=== PATIENT | male | born 1960 | race Caucasian/White ===

== ENCOUNTER 2017-07-11 23:17 | Emergency (ER) | END 2017-07-12 02:21 | disposition home or self-care (01) ==

== ENCOUNTER 2017-09-27 14:16 | Emergency (ER) | END 2017-09-27 19:10 | disposition home or self-care (01) ==

== ENCOUNTER 2017-11-29 13:17 | Inpatient (IN) | END 2017-11-30 16:25 | disposition home or self-care (01) | DRG 378 ==

== ENCOUNTER 2018-10-24 22:19 | Inpatient (IN) | payer OTHER ==
[~2018-10-24] VITALS: Ht 177.8 cm; Wt 123.0 kg
[~2018-10-24 22:19] MED LIST: ALLO100T PO; CARAS PO; CHLO25CA9 PO; FOLI-49 PO; LACT20SO2 PO; LORA-444; OXYC5CAP17 PO; PANT40TA3 PO; PROP10TA6 PO; QUET100T32 PO; RIFA550T4 PO; THIA100T56 PO; ZOLP5TAB PO
[2018-10-24 22:29] VITALS: Ht 177.8 cm; Wt 123.0 kg
[2018-10-24] MEDS ORDERED: SOD CHLORIDE 0.9% 1,000 ML IV STA (22:34)
[2018-10-25] MEDS ORDERED: LACTULOSE 30ML CUP PO PRN (01:00)
[2018-10-25] MEDS ORDERED: ONDANSETRON 4 MG INJ IV PRN (01:00)
[2018-10-25] MEDS ORDERED: BISACODYL (EC) 5 MG TAB PO PRN (01:00)
[2018-10-25] MEDS ORDERED: ACETAMINOPHEN 325 MG TAB PO PRN (01:00)
[2018-10-25] MEDS ORDERED: NACL 0.9% 3 ML SYG IV SCH (01:00)
[2018-10-25] MEDS ORDERED: DOCUSATE SODIUM 100 MG CAP PO PRN (01:00)
[2018-10-25] MEDS ORDERED: BUMETANIDE 1 MG INJ IV ONE (01:30)
[2018-10-25] MEDS ORDERED: LORAZEPAM 2 MG INJ IV PRN (01:30)
[2018-10-25 01:58] VITALS: BP 188/82; PULSE 101; RESP 20
[2018-10-25] MEDS ORDERED: LORAZEPAM 2 MG INJ IV ONE (05:00)
[2018-10-25] MEDS ORDERED: AMLODIPINE 5 MG TAB PO ONE (05:00)
[2018-10-25 07:04] VITALS: BP 137/74; PULSE 100
[2018-10-25 07:44] VITALS: BP 142/65; PULSE 106; RESP 18
[2018-10-25] MEDS: MULTIVITAMINS THERAPEUTIC TAB PO SCH (08:14)
[2018-10-25] MEDS: FOLIC ACID 1 MG TAB PO SCH (08:14)
[2018-10-25] MEDS: THIAMINE 100 MG TAB PO SCH (08:14)
[2018-10-25] MEDS ORDERED: PANTOPRAZOLE (EC) 40 MG TAB PO SCH (09:00)
[2018-10-25] MEDS ORDERED: LACTULOSE 30ML CUP PO ONE (10:00)
[2018-10-25] MEDS: LORAZEPAM 2 MG INJ IV PRN ×2 (11:42→22:44)
[2018-10-25] MEDS: LACTULOSE 30ML CUP PO SCH ×3 (12:00→23:52)
[2018-10-25 15:01] VITALS: BP 141/75; PULSE 112; RESP 19
[2018-10-25] MEDS: SUCRALFATE (100 MG/ML) 10ML CUP GTB SCH ×3 (15:10→20:43)
[2018-10-25] MEDS: OCTREOTIDE 1 MG in DEXTROSE 5% 95 ML IV SCH (15:52)
[2018-10-25] MEDS: CEFTRIAXONE 1 GM/50 ML (PMX) 50 ML IVPB SCH (15:52)
[2018-10-25] MEDS: PANTOPRAZOLE 40 MG INJ IV SCH (18:07)
[2018-10-25 20:30] VITALS: BP 144/67; PULSE 101; RESP 20
[2018-10-25] MEDS: RIFAXIMIN 550 MG TAB PO SCH (20:43)
[2018-10-26] VITALS: BP 129/65; PULSE 98; RESP 18
[2018-10-26] MEDS: LORAZEPAM 2 MG INJ IV PRN ×3 (01:35→22:32)
[2018-10-26 04:00] VITALS: BP 130/71; PULSE 95; RESP 20
[2018-10-26] MEDS ORDERED: SOD CHLORIDE 0.9% 500 ML IV ONE (05:30)
[2018-10-26] MEDS: PANTOPRAZOLE 40 MG INJ IV SCH ×2 (05:47→18:06)
[2018-10-26] MEDS: LACTULOSE 30ML CUP PO SCH ×3 (05:47→21:25)
[2018-10-26 07:26] VITALS: BP 128/67; PULSE 92; RESP 18
[2018-10-26] MEDS: MULTIVITAMINS THERAPEUTIC TAB PO SCH (08:31)
[2018-10-26] MEDS: THIAMINE 100 MG TAB PO SCH (08:31)
[2018-10-26] MEDS: FOLIC ACID 1 MG TAB PO SCH (08:31)
[2018-10-26] MEDS: SUCRALFATE (100 MG/ML) 10ML CUP GTB SCH ×4 (08:31→21:25)
[2018-10-26] MEDS: RIFAXIMIN 550 MG TAB PO SCH ×2 (08:31→21:25)
[2018-10-26] MEDS ORDERED: MAGNESIUM SULFATE 2 GM/50 ML 50 ML IVPB ONE (11:00)
[2018-10-26] MEDS: OCTREOTIDE 1 MG in DEXTROSE 5% 95 ML IV SCH (11:34)
[2018-10-26 11:48] VITALS: BP 142/64; PULSE 98; RESP 19
[2018-10-26] MEDS: CEFTRIAXONE 1 GM/50 ML (PMX) 50 ML IVPB SCH (12:57)
[2018-10-26 15:14] VITALS: BP 139/70; PULSE 89; RESP 19
[2018-10-26 20:00] VITALS: BP 151/64; PULSE 82; RESP 20
[2018-10-27] VITALS: BP 137/60; PULSE 84; RESP 22
[2018-10-27] MEDS: LORAZEPAM 2 MG INJ IV PRN ×5 (00:19→21:20)
[2018-10-27] MEDS: HYDROCODONE/APAP (5/325) TAB PO PRN (01:01)
[2018-10-27 04:00] VITALS: BP 128/69; RESP 20
[2018-10-27] MEDS: PANTOPRAZOLE 40 MG INJ IV SCH ×2 (06:14→17:12)
[2018-10-27 07:35] VITALS: BP 149/71; PULSE 82; RESP 20
[2018-10-27] MEDS: OCTREOTIDE 1 MG in DEXTROSE 5% 95 ML IV SCH (08:31)
[2018-10-27] MEDS: FOLIC ACID 1 MG TAB PO SCH (09:00)
[2018-10-27] MEDS: MULTIVITAMINS THERAPEUTIC TAB PO SCH (09:00)
[2018-10-27] MEDS: LACTULOSE 30ML CUP PO SCH ×2 (09:00→21:20)
[2018-10-27] MEDS: SUCRALFATE (100 MG/ML) 10ML CUP GTB SCH ×4 (09:00→21:20)
[2018-10-27 11:29] VITALS: BP 123/55; PULSE 86; RESP 20
[2018-10-27 13:36] VITALS: BP 181/82; PULSE 80; RESP 10
[2018-10-27] MEDS ORDERED: PROPOFOL 40 ML ONE (14:24)
[2018-10-27] MEDS ORDERED: LABETALOL HCL 20MG INJ ONE (14:26)
[2018-10-27] MEDS ORDERED: hydrALAzine 20 MG INJ ONE (14:27)
[2018-10-27] MEDS: THIAMINE 100 MG TAB PO SCH (15:42)
[2018-10-27] MEDS: RIFAXIMIN 550 MG TAB PO SCH ×2 (15:56→21:20)
[2018-10-27] MEDS: CEFTRIAXONE 1 GM/50 ML (PMX) 50 ML IVPB SCH (16:01)
[2018-10-27 20:00] VITALS: BP 142/74; PULSE 82; RESP 18
[2018-10-28] VITALS: BP 136/80; PULSE 80; RESP 20
[2018-10-28] MEDS: PANTOPRAZOLE 40 MG INJ IV SCH ×3 (05:41→17:49)
[2018-10-28 07:26] VITALS: BP 113/57; PULSE 87; RESP 17
[2018-10-28] MEDS: LACTULOSE 30ML CUP PO SCH ×2 (09:30→21:12)
[2018-10-28] MEDS: THIAMINE 100 MG TAB PO SCH (09:30)
[2018-10-28] MEDS: FOLIC ACID 1 MG TAB PO SCH (09:30)
[2018-10-28] MEDS: SUCRALFATE (100 MG/ML) 10ML CUP GTB SCH ×4 (09:30→21:12)
[2018-10-28] MEDS: RIFAXIMIN 550 MG TAB PO SCH ×2 (09:30→21:12)
[2018-10-28] MEDS: MULTIVITAMINS THERAPEUTIC TAB PO SCH (09:30)
[2018-10-28] MEDS ORDERED: POTASSIUM CHLORIDE (SR) 20 MEQ TAB PO STA (09:44)
[2018-10-28] MEDS ORDERED: MAGNESIUM SULFATE 2 GM/50 ML 50 ML IVPB ONE (10:00)
[2018-10-28 11:14] VITALS: BP 107/81; PULSE 89; RESP 17
[2018-10-28] MEDS: LORAZEPAM 2 MG INJ IV PRN ×2 (11:47→17:50)
[2018-10-28] MEDS: CEFTRIAXONE 1 GM/50 ML (PMX) 50 ML IVPB SCH (13:15)
[2018-10-28 15:19] VITALS: BP 134/64; PULSE 86; RESP 18
[2018-10-28 20:00] VITALS: BP 126/64; PULSE 81; RESP 18
[2018-10-28] MEDS: PROPRANOLOL 10 MG TAB PO SCH (21:13)
[2018-10-29] VITALS (7 sets, daily range): BP systolic 115–180; BP diastolic 63–114; PULSE 75–84; RESP 17–25
[2018-10-29] MEDS: LORAZEPAM 2 MG INJ IV PRN ×4 (00:20→20:34)
[2018-10-29] MEDS: PANTOPRAZOLE 40 MG INJ IV SCH ×2 (05:54→17:56)
[2018-10-29] MEDS: RIFAXIMIN 550 MG TAB PO SCH ×2 (08:17→20:07)
[2018-10-29] MEDS: MULTIVITAMINS THERAPEUTIC TAB PO SCH (08:17)
[2018-10-29] MEDS: SUCRALFATE (100 MG/ML) 10ML CUP GTB SCH ×5 (08:17→20:35)
[2018-10-29] MEDS: FOLIC ACID 1 MG TAB PO SCH (08:17)
[2018-10-29] MEDS: LACTULOSE 30ML CUP PO SCH ×3 (08:18→20:36)
[2018-10-29] MEDS: THIAMINE 100 MG TAB PO SCH (08:18)
[2018-10-29] MEDS: PROPRANOLOL 10 MG TAB PO SCH ×3 (08:18→20:36)
[2018-10-29] MEDS: CEFTRIAXONE 1 GM/50 ML (PMX) 50 ML IVPB SCH (13:11)
[2018-10-29] MEDS ORDERED: HALOPERIDOL 5 MG INJ IM ONE (22:00)
[2018-10-29] MEDS ORDERED: LORAZEPAM 2 MG INJ IV ONE ×2 (22:00→23:00)
[2018-10-29] MEDS ORDERED: DIPHENHYDRAMINE 50 MG INJ IV ONE (22:00)
[2018-10-29] MEDS ORDERED: HYDROmorphONE 1 MG/ML SYG IV ONE (23:00)
[2018-10-30] VITALS (7 sets, daily range): BP systolic 113–152; BP diastolic 58–91; PULSE 70–89; RESP 18–21
[2018-10-30] MEDS: LORAZEPAM 2 MG INJ IV PRN ×3 (04:58→20:32)
[2018-10-30] MEDS: PANTOPRAZOLE (EC) 40 MG TAB PO SCH ×2 (05:01→17:31)
[2018-10-30] MEDS: SUCRALFATE (100 MG/ML) 10ML CUP GTB SCH ×4 (08:59→20:24)
[2018-10-30] MEDS: MULTIVITAMINS THERAPEUTIC TAB PO SCH (08:59)
[2018-10-30] MEDS: RIFAXIMIN 550 MG TAB PO SCH ×2 (08:59→20:24)
[2018-10-30] MEDS: FOLIC ACID 1 MG TAB PO SCH (08:59)
[2018-10-30] MEDS: LACTULOSE 30ML CUP PO SCH ×2 (09:00→20:24)
[2018-10-30] MEDS: PROPRANOLOL 10 MG TAB PO SCH ×2 (09:00→20:25)
[2018-10-30] MEDS: THIAMINE 100 MG TAB PO SCH (09:03)
[2018-10-30] MEDS ORDERED: DIPHENHYDRAMINE 50 MG INJ IV ONE (22:28)
[2018-10-30] MEDS ORDERED: LORAZEPAM 2 MG INJ IV ONE (22:29)
[2018-10-31] VITALS: BP 121/57; PULSE 82; RESP 20
[2018-10-31] MEDS: LORAZEPAM 2 MG INJ IV PRN ×4 (00:21→22:44)
[2018-10-31] MEDS ORDERED: CHLORDIAZEPOXIDE 5 MG CAP PO ONE (02:30)
[2018-10-31 04:00] VITALS: BP 133/79; PULSE 79; RESP 20
[2018-10-31] MEDS: PANTOPRAZOLE (EC) 40 MG TAB PO SCH ×2 (05:56→17:51)
[2018-10-31 07:33] VITALS: BP 110/69; PULSE 79; RESP 18
[2018-10-31] MEDS: SUCRALFATE (100 MG/ML) 10ML CUP GTB SCH ×4 (09:39→20:14)
[2018-10-31] MEDS: MULTIVITAMINS THERAPEUTIC TAB PO SCH (09:39)
[2018-10-31] MEDS: LACTULOSE 30ML CUP PO SCH ×3 (09:39→20:30)
[2018-10-31] MEDS: RIFAXIMIN 550 MG TAB PO SCH ×2 (09:39→20:15)
[2018-10-31] MEDS: THIAMINE 100 MG TAB PO SCH (09:39)
[2018-10-31] MEDS: FOLIC ACID 1 MG TAB PO SCH (09:41)
[2018-10-31] MEDS: PROPRANOLOL 10 MG TAB PO SCH ×2 (09:41→20:15)
[2018-10-31 11:06] VITALS: BP 126/68; PULSE 84; RESP 18
[2018-10-31] MEDS: POTASSIUM CHLORIDE 100 ML IVPB SCH ×2 (11:48→15:01)
[2018-10-31 16:53] VITALS: BP 101/59; PULSE 88; RESP 18
[2018-10-31] MEDS ORDERED: DIPHENHYDRAMINE 50 MG INJ IV ONE (20:00)
[2018-10-31] MEDS ORDERED: LORAZEPAM 2 MG INJ IV ONE (20:00)
[2018-10-31] MEDS ORDERED: HALOPERIDOL 5 MG INJ IM ONE (20:00)
[2018-10-31 20:12] VITALS: BP 141/83; PULSE 84; RESP 23
[2018-11-01] VITALS: BP 137/77; PULSE 81; RESP 21
[2018-11-01] MEDS: LORAZEPAM 2 MG INJ IV PRN ×5 (02:48→22:39)
[2018-11-01 03:55] VITALS: BP 101/59; PULSE 82; RESP 20
[2018-11-01] MEDS: PANTOPRAZOLE (EC) 40 MG TAB PO SCH ×2 (06:17→17:42)
[2018-11-01 07:56] VITALS: BP 131/76; PULSE 84; RESP 17
[2018-11-01] MEDS: RIFAXIMIN 550 MG TAB PO SCH ×2 (08:21→20:34)
[2018-11-01] MEDS: THIAMINE 100 MG TAB PO SCH (08:21)
[2018-11-01] MEDS: FOLIC ACID 1 MG TAB PO SCH (08:21)
[2018-11-01] MEDS: SUCRALFATE (100 MG/ML) 10ML CUP GTB SCH ×4 (08:22→20:35)
[2018-11-01] MEDS: PROPRANOLOL 10 MG TAB PO SCH ×2 (08:22→20:34)
[2018-11-01] MEDS: MULTIVITAMINS THERAPEUTIC TAB PO SCH (08:22)
[2018-11-01] MEDS: LACTULOSE 30ML CUP PO SCH ×2 (08:22→20:35)
[2018-11-01 11:31] VITALS: BP 127/67; PULSE 76; RESP 18
[2018-11-01 15:00] VITALS: BP 140/73; PULSE 89; RESP 18
[2018-11-01 19:29] VITALS: BP_SYST 123; BP_SYST 140; BP_DIAS 66; BP_DIAS 87; PULSE 89; RESP 18
[2018-11-02] MEDS: LORAZEPAM 2 MG INJ IV PRN ×2 (00:51→11:14)
[2018-11-02 01:44] VITALS: BP 141/79; PULSE 87; RESP 18
[2018-11-02] MEDS ORDERED: HALOPERIDOL 5 MG INJ IM ONE (03:37)
[2018-11-02] MEDS ORDERED: LORAZEPAM 2 MG INJ IV ONE (03:37)
[2018-11-02] MEDS ORDERED: DIPHENHYDRAMINE 50 MG INJ IV ONE (03:37)
[2018-11-02] MEDS: PANTOPRAZOLE (EC) 40 MG TAB PO SCH ×2 (05:15→17:06)
[2018-11-02] MEDS: RIFAXIMIN 550 MG TAB PO SCH ×2 (09:00→20:44)
[2018-11-02] MEDS: LACTULOSE 30ML CUP PO SCH ×2 (09:00→20:43)
[2018-11-02] MEDS: PROPRANOLOL 10 MG TAB PO SCH ×2 (09:00→20:43)
[2018-11-02] MEDS: THIAMINE 100 MG TAB PO SCH (09:00)
[2018-11-02] MEDS: MULTIVITAMINS THERAPEUTIC TAB PO SCH (09:00)
[2018-11-02] MEDS: FOLIC ACID 1 MG TAB PO SCH (09:00)
[2018-11-02] MEDS: SUCRALFATE (100 MG/ML) 10ML CUP GTB SCH ×4 (09:00→20:42)
[2018-11-02 11:04] VITALS: BP 138/92; PULSE 87; RESP 18
[2018-11-02] MEDS ORDERED: METOPROLOL 5 MG INJ IV ONE (13:30)
[2018-11-02 14:37] VITALS: BP 136/83; PULSE 84; RESP 18
[2018-11-02] MEDS ORDERED: POTASSIUM CHLORIDE 100 ML IVPB SCH (15:00)
[2018-11-02 16:32] VITALS: BP 139/75; PULSE 83; RESP 19
[2018-11-02] MEDS ORDERED: METOPROLOL 5 MG INJ IV PRN (18:00)
[2018-11-02] MEDS ORDERED: METOPROLOL 5 MG INJ IV SCH (18:00)
[2018-11-02 19:38] VITALS: BP 135/77; PULSE 81; RESP 19
[2018-11-03] VITALS: BP 138/69; PULSE 84; RESP 19
[2018-11-03 04:16] VITALS: BP 132/83; PULSE 86; RESP 19
[2018-11-03] MEDS: PANTOPRAZOLE (EC) 40 MG TAB PO SCH ×2 (05:38→18:03)
[2018-11-03] MEDS: RIFAXIMIN 550 MG TAB PO SCH ×2 (08:29→20:26)
[2018-11-03] MEDS: SUCRALFATE (100 MG/ML) 10ML CUP GTB SCH ×4 (08:29→20:26)
[2018-11-03] MEDS: THIAMINE 100 MG TAB PO SCH (08:29)
[2018-11-03] MEDS: LACTULOSE 30ML CUP PO SCH ×2 (08:29→20:26)
[2018-11-03] MEDS: MULTIVITAMINS THERAPEUTIC TAB PO SCH (08:29)
[2018-11-03] MEDS: PROPRANOLOL 10 MG TAB PO SCH ×2 (08:29→20:26)
[2018-11-03] MEDS: FOLIC ACID 1 MG TAB PO SCH (08:29)
[2018-11-03 08:38] VITALS: BP 127/67; PULSE 84; RESP 20
[2018-11-03 11:36] VITALS: BP 117/68; PULSE 90; RESP 20
[2018-11-03 15:33] VITALS: BP 142/78; PULSE 90; RESP 20
[2018-11-03] MEDS: LORAZEPAM 2 MG INJ IV PRN (19:35)
[2018-11-03 20:24] VITALS: BP 132/74; PULSE 92; RESP 18
[2018-11-04] VITALS: BP 122/72; PULSE 80; RESP 19
[2018-11-04 04:00] VITALS: BP 118/69; PULSE 81; RESP 20
[2018-11-04] MEDS: PANTOPRAZOLE (EC) 40 MG TAB PO SCH ×2 (05:27→17:14)
[2018-11-04 07:07] VITALS: BP 133/74; PULSE 79; RESP 20
[2018-11-04] MEDS: LORAZEPAM 2 MG INJ IV PRN ×3 (08:23→15:58)
[2018-11-04] MEDS: FOLIC ACID 1 MG TAB PO SCH (09:00)
[2018-11-04] MEDS: PROPRANOLOL 10 MG TAB PO SCH ×2 (09:00→21:43)
[2018-11-04] MEDS: SUCRALFATE (100 MG/ML) 10ML CUP GTB SCH ×4 (09:00→21:42)
[2018-11-04] MEDS: MULTIVITAMINS THERAPEUTIC TAB PO SCH (09:00)
[2018-11-04] MEDS: RIFAXIMIN 550 MG TAB PO SCH ×3 (09:00→21:43)
[2018-11-04] MEDS: THIAMINE 100 MG TAB PO SCH (09:00)
[2018-11-04] MEDS: LACTULOSE 30ML CUP PO SCH ×2 (09:10→22:03)
[2018-11-04 10:59] VITALS: BP 132/66; PULSE 80; RESP 20
[2018-11-04] MEDS ORDERED: LORAZEPAM 2 MG INJ ONE (11:30)
[2018-11-04] MEDS ORDERED: MAGNESIUM SULFATE 2 GM/50 ML 50 ML IVPB ONE (13:00)
[2018-11-04] MEDS: CHLORDIAZEPOXIDE 5 MG CAP PO SCH ×2 (14:29→21:43)
[2018-11-04 14:57] VITALS: BP 132/82; PULSE 83; RESP 20
[2018-11-04] MEDS ORDERED: POTASSIUM PHOSPHATE 15 MM in SOD CHLORIDE 0.9% 250 ML IVPB ONE (15:00)
[2018-11-04 20:01] VITALS: BP 131/77; PULSE 81; RESP 23
[2018-11-05] MEDS: LORAZEPAM 2 MG INJ IV PRN (00:45)
[2018-11-05 02:00] VITALS: BP 137/71; PULSE 85; RESP 25
[2018-11-05] MEDS: PANTOPRAZOLE (EC) 40 MG TAB PO SCH ×2 (06:00→18:15)
[2018-11-05 06:50] VITALS: BP 124/60; PULSE 80; RESP 20
[2018-11-05 07:27] VITALS: BP 110/64; PULSE 84; RESP 22
[2018-11-05] MEDS: CHLORDIAZEPOXIDE 5 MG CAP PO SCH ×3 (09:24→22:02)
[2018-11-05] MEDS: THIAMINE 100 MG TAB PO SCH (09:25)
[2018-11-05] MEDS: RIFAXIMIN 550 MG TAB PO SCH ×2 (09:25→22:02)
[2018-11-05] MEDS: LACTULOSE 30ML CUP PO SCH ×3 (09:25→22:03)
[2018-11-05] MEDS: PROPRANOLOL 10 MG TAB PO SCH ×2 (09:25→22:03)
[2018-11-05] MEDS: FOLIC ACID 1 MG TAB PO SCH (09:25)
[2018-11-05] MEDS: MULTIVITAMINS THERAPEUTIC TAB PO SCH (09:25)
[2018-11-05] MEDS: SUCRALFATE (100 MG/ML) 10ML CUP GTB SCH ×5 (09:26→22:03)
[2018-11-05] MEDS: HYDROCODONE/APAP (5/325) TAB PO PRN (11:02)
[2018-11-05 11:44] VITALS: BP 112/66; PULSE 80; RESP 20
[2018-11-05] MEDS ORDERED: MAGNESIUM SULFATE 2 GM/50 ML 50 ML IVPB ONE (12:30)
[2018-11-05 14:33] VITALS: BP 104/68; PULSE 82; RESP 20
[2018-11-05 20:02] VITALS: BP 139/61; PULSE 86; RESP 18
[2018-11-06 02:04] VITALS: BP 115/68; PULSE 78; RESP 16
[2018-11-06] MEDS: LORAZEPAM 2 MG INJ IV PRN ×2 (04:39→23:22)
[2018-11-06] MEDS: PANTOPRAZOLE (EC) 40 MG TAB PO SCH ×2 (05:52→17:25)
[2018-11-06 08:03] VITALS: BP 121/77; PULSE 76; RESP 18
[2018-11-06] MEDS: LACTULOSE 30ML CUP PO SCH ×2 (08:17→20:31)
[2018-11-06] MEDS: CHLORDIAZEPOXIDE 5 MG CAP PO SCH ×3 (08:18→20:33)
[2018-11-06] MEDS: RIFAXIMIN 550 MG TAB PO SCH ×2 (08:18→20:33)
[2018-11-06] MEDS: MULTIVITAMINS THERAPEUTIC TAB PO SCH (08:18)
[2018-11-06] MEDS: FOLIC ACID 1 MG TAB PO SCH (08:18)
[2018-11-06] MEDS: SUCRALFATE (100 MG/ML) 10ML CUP GTB SCH ×4 (08:18→20:30)
[2018-11-06] MEDS: THIAMINE 100 MG TAB PO SCH (08:19)
[2018-11-06] MEDS: PROPRANOLOL 10 MG TAB PO SCH ×2 (08:19→20:32)
[2018-11-06 14:53] VITALS: BP 178/65; PULSE 78; RESP 20
[2018-11-06 20:00] VITALS: BP 126/74; PULSE 74; RESP 19
[2018-11-07 03:25] VITALS: BP 140/74; PULSE 75; RESP 16
[2018-11-07] MEDS: PANTOPRAZOLE (EC) 40 MG TAB PO SCH ×2 (05:08→17:13)
[2018-11-07] MEDS: MULTIVITAMINS THERAPEUTIC TAB PO SCH (08:52)
[2018-11-07] MEDS: RIFAXIMIN 550 MG TAB PO SCH ×2 (08:52→20:41)
[2018-11-07] MEDS: SUCRALFATE (100 MG/ML) 10ML CUP GTB SCH ×4 (08:52→20:40)
[2018-11-07] MEDS: THIAMINE 100 MG TAB PO SCH (08:52)
[2018-11-07] MEDS: CHLORDIAZEPOXIDE 5 MG CAP PO SCH ×3 (08:52→20:41)
[2018-11-07] MEDS: FOLIC ACID 1 MG TAB PO SCH (08:52)
[2018-11-07] MEDS: PROPRANOLOL 10 MG TAB PO SCH ×2 (08:52→20:41)
[2018-11-07] MEDS: LACTULOSE 30ML CUP PO SCH ×2 (08:53→20:40)
[2018-11-07 14:00] VITALS: BP 105/51; PULSE 80; RESP 16
[2018-11-07 20:25] VITALS: BP 127/73; PULSE 84; RESP 18
[2018-11-07] MEDS: HYDROCODONE/APAP (5/325) TAB PO PRN (20:42)
[2018-11-07] MEDS: LORAZEPAM 2 MG INJ IV PRN (23:25)
[2018-11-08] MEDS ORDERED: LORAZEPAM 2 MG INJ IV STA (01:08)
[2018-11-08] MEDS ORDERED: HALOPERIDOL 5 MG INJ ONE (01:14)
[2018-11-08] MEDS ORDERED: HALOPERIDOL 5 MG INJ IM STA (01:15)
[2018-11-08 02:20] VITALS: BP 112/69; PULSE 72; RESP 18
[2018-11-08] MEDS ORDERED: DIPHENHYDRAMINE 50 MG INJ IV ONE (03:09)
[2018-11-08] MEDS: PANTOPRAZOLE (EC) 40 MG TAB PO SCH ×2 (05:37→17:17)
[2018-11-08 08:00] VITALS: BP 119/57; PULSE 76; RESP 18
[2018-11-08] MEDS: CHLORDIAZEPOXIDE 5 MG CAP PO SCH ×4 (08:54→21:00)
[2018-11-08] MEDS: LACTULOSE 30ML CUP PO SCH ×3 (08:54→21:00)
[2018-11-08] MEDS: SUCRALFATE (100 MG/ML) 10ML CUP GTB SCH ×5 (08:54→21:00)
[2018-11-08] MEDS: THIAMINE 100 MG TAB PO SCH ×2 (08:55→09:00)
[2018-11-08] MEDS: PROPRANOLOL 10 MG TAB PO SCH ×3 (08:55→21:00)
[2018-11-08] MEDS: RIFAXIMIN 550 MG TAB PO SCH ×3 (08:55→21:00)
[2018-11-08] MEDS: MULTIVITAMINS THERAPEUTIC TAB PO SCH ×2 (08:55→09:00)
[2018-11-08] MEDS: FOLIC ACID 1 MG TAB PO SCH ×2 (08:55→09:00)
[2018-11-08 14:30] VITALS: BP 130/64; PULSE 82; RESP 18
[2018-11-08 20:00] VITALS: BP 132/60; PULSE 80; RESP 18
[2018-11-08] MEDS: LORAZEPAM 2 MG INJ IV PRN (21:28)
[2018-11-09 04:00] VITALS: BP 119/53; PULSE 96; RESP 19
[2018-11-09] MEDS: PANTOPRAZOLE (EC) 40 MG TAB PO SCH ×2 (06:00→18:00)
[2018-11-09 07:38] VITALS: BP 114/59; PULSE 92; RESP 16
[2018-11-09] MEDS: CHLORDIAZEPOXIDE 5 MG CAP PO SCH ×3 (09:00→20:45)
[2018-11-09] MEDS: SUCRALFATE (100 MG/ML) 10ML CUP GTB SCH ×4 (09:00→20:45)
[2018-11-09 14:00] VITALS: BP 142/86; PULSE 91; RESP 20
[2018-11-09] MEDS: THIAMINE 100 MG TAB PO SCH (14:45)
[2018-11-09] MEDS: LACTULOSE 30ML CUP PO SCH ×2 (14:45→20:50)
[2018-11-09] MEDS: RIFAXIMIN 550 MG TAB PO SCH ×2 (14:46→20:45)
[2018-11-09] MEDS: FOLIC ACID 1 MG TAB PO SCH (14:46)
[2018-11-09] MEDS: MULTIVITAMINS THERAPEUTIC TAB PO SCH (14:46)
[2018-11-09] MEDS: PROPRANOLOL 10 MG TAB PO SCH ×2 (14:46→20:45)
[2018-11-09 20:00] VITALS: BP 131/73; PULSE 80; RESP 19
[2018-11-09] MEDS: HYDROCODONE/APAP (5/325) TAB PO PRN (20:45)
[2018-11-10 02:00] VITALS: BP 110/67; PULSE 71; RESP 18
[2018-11-10] MEDS: PANTOPRAZOLE (EC) 40 MG TAB PO SCH ×2 (06:19→17:40)
[2018-11-10 08:10] VITALS: BP 129/74; PULSE 72; RESP 18
[2018-11-10] MEDS: SUCRALFATE (100 MG/ML) 10ML CUP GTB SCH ×4 (08:39→20:25)
[2018-11-10] MEDS: FOLIC ACID 1 MG TAB PO SCH (08:40)
[2018-11-10] MEDS: LACTULOSE 30ML CUP PO SCH ×2 (08:40→20:25)
[2018-11-10] MEDS: MULTIVITAMINS THERAPEUTIC TAB PO SCH (08:41)
[2018-11-10] MEDS: CHLORDIAZEPOXIDE 5 MG CAP PO SCH ×3 (08:41→20:24)
[2018-11-10] MEDS: RIFAXIMIN 550 MG TAB PO SCH ×2 (08:41→20:24)
[2018-11-10] MEDS: PROPRANOLOL 10 MG TAB PO SCH ×2 (08:41→20:25)
[2018-11-10] MEDS: THIAMINE 100 MG TAB PO SCH (08:41)
[2018-11-10 14:45] VITALS: BP 122/72; PULSE 64; RESP 18
[2018-11-10 19:53] VITALS: BP 149/70; PULSE 65; RESP 18
[2018-11-10] MEDS: LORAZEPAM 2 MG INJ IV PRN (23:35)
[2018-11-11 02:05] VITALS: BP 117/60; PULSE 70; RESP 20
[2018-11-11] MEDS: PANTOPRAZOLE (EC) 40 MG TAB PO SCH ×2 (06:00→17:53)
[2018-11-11 08:39] VITALS: BP 120/65; PULSE 76; RESP 20
[2018-11-11] MEDS: CHLORDIAZEPOXIDE 5 MG CAP PO SCH ×3 (09:05→20:24)
[2018-11-11] MEDS: RIFAXIMIN 550 MG TAB PO SCH ×2 (09:07→20:24)
[2018-11-11] MEDS: PROPRANOLOL 10 MG TAB PO SCH ×2 (09:07→20:25)
[2018-11-11] MEDS: SUCRALFATE (100 MG/ML) 10ML CUP GTB SCH ×4 (09:09→20:24)
[2018-11-11] MEDS: LACTULOSE 30ML CUP PO SCH ×2 (09:09→20:31)
[2018-11-11] MEDS: THIAMINE 100 MG TAB PO SCH (09:13)
[2018-11-11] MEDS: FOLIC ACID 1 MG TAB PO SCH (09:13)
[2018-11-11] MEDS: MULTIVITAMINS THERAPEUTIC TAB PO SCH (09:15)
[2018-11-11] MEDS: LORAZEPAM 2 MG INJ IV PRN ×2 (14:21→18:24)
[2018-11-11 15:02] VITALS: BP 107/57; PULSE 69; RESP 20
[2018-11-11] MEDS: QUETIAPINE 100 MG TAB PO PRN (20:25)
[2018-11-11 20:42] VITALS: BP 108/66; PULSE 71; RESP 20
[2018-11-12] MEDS: LORAZEPAM 2 MG INJ IV PRN
[2018-11-12 02:06] VITALS: BP 116/67; PULSE 73; RESP 19
[2018-11-12] MEDS: QUETIAPINE 100 MG TAB PO PRN ×2 (03:13→22:40)
[2018-11-12] MEDS: PANTOPRAZOLE (EC) 40 MG TAB PO SCH ×2 (05:38→17:53)
[2018-11-12] MEDS: RIFAXIMIN 550 MG TAB PO SCH ×2 (09:00→22:38)
[2018-11-12] MEDS: LACTULOSE 30ML CUP PO SCH ×2 (09:00→22:36)
[2018-11-12] MEDS: FOLIC ACID 1 MG TAB PO SCH (09:00)
[2018-11-12] MEDS: SUCRALFATE (100 MG/ML) 10ML CUP GTB SCH ×4 (09:00→22:36)
[2018-11-12] MEDS: PROPRANOLOL 10 MG TAB PO SCH ×2 (09:00→22:37)
[2018-11-12] MEDS: THIAMINE 100 MG TAB PO SCH (09:00)
[2018-11-12] MEDS: MULTIVITAMINS THERAPEUTIC TAB PO SCH (09:00)
[2018-11-12] MEDS: CHLORDIAZEPOXIDE 5 MG CAP PO SCH ×3 (09:00→22:38)
[2018-11-12 20:00] VITALS: BP 113/61; PULSE 83; RESP 18
[2018-11-13 02:00] VITALS: BP 114/62; PULSE 70; RESP 18
[2018-11-13] MEDS: PANTOPRAZOLE (EC) 40 MG TAB PO SCH ×2 (06:00→17:20)
[2018-11-13 08:45] VITALS: BP 110/65; PULSE 75; RESP 18
[2018-11-13] MEDS: THIAMINE 100 MG TAB PO SCH (09:00)
[2018-11-13] MEDS: CHLORDIAZEPOXIDE 5 MG CAP PO SCH ×3 (09:00→21:00)
[2018-11-13] MEDS: PROPRANOLOL 10 MG TAB PO SCH ×2 (09:00→21:00)
[2018-11-13] MEDS: SUCRALFATE (100 MG/ML) 10ML CUP PO SCH ×4 (09:00→21:00)
[2018-11-13] MEDS: RIFAXIMIN 550 MG TAB PO SCH ×2 (09:00→21:00)
[2018-11-13] MEDS: MULTIVITAMINS THERAPEUTIC TAB PO SCH (09:00)
[2018-11-13] MEDS: LACTULOSE 30ML CUP PO SCH ×2 (09:00→21:00)
[2018-11-13] MEDS: FOLIC ACID 1 MG TAB PO SCH (09:00)
[2018-11-13] MEDS: QUETIAPINE 100 MG TAB PO PRN (14:02)
[2018-11-13 14:20] VITALS: BP 113/70; PULSE 77; RESP 16
[2018-11-13 20:00] VITALS: BP 120/61; PULSE 86; RESP 17
[2018-11-14] MEDS: QUETIAPINE 100 MG TAB PO PRN (01:31)
[2018-11-14] MEDS: CHLORDIAZEPOXIDE 5 MG CAP PO SCH ×4 (01:54→20:41)
[2018-11-14 02:00] VITALS: BP 118/59; PULSE 78; RESP 18
[2018-11-14] MEDS: PANTOPRAZOLE (EC) 40 MG TAB PO SCH ×2 (06:00→17:01)
[2018-11-14 08:00] VITALS: BP 124/62; PULSE 76; RESP 18
[2018-11-14] MEDS: SUCRALFATE (100 MG/ML) 10ML CUP PO SCH ×4 (10:55→20:40)
[2018-11-14] MEDS: LACTULOSE 30ML CUP PO SCH ×2 (10:56→20:41)
[2018-11-14] MEDS: PROPRANOLOL 10 MG TAB PO SCH ×2 (10:56→20:42)
[2018-11-14] MEDS: FOLIC ACID 1 MG TAB PO SCH (10:56)
[2018-11-14] MEDS: THIAMINE 100 MG TAB PO SCH (10:57)
[2018-11-14] MEDS: RIFAXIMIN 550 MG TAB PO SCH ×2 (10:57→20:41)
[2018-11-14] MEDS: MULTIVITAMINS THERAPEUTIC TAB PO SCH (10:57)
[2018-11-14 14:00] VITALS: BP 132/72; PULSE 84; RESP 18
[2018-11-14 20:00] VITALS: BP 112/61; PULSE 94; RESP 17
[2018-11-15 02:00] VITALS: BP 106/59; PULSE 95; RESP 18
[2018-11-15] MEDS: QUETIAPINE 100 MG TAB PO PRN ×2 (03:27→21:10)
[2018-11-15] MEDS: HYDROCODONE/APAP (5/325) TAB PO PRN (03:27)
[2018-11-15] MEDS: PANTOPRAZOLE (EC) 40 MG TAB PO SCH ×2 (05:32→18:30)
[2018-11-15 08:00] VITALS: BP 155/86; PULSE 96; RESP 20
[2018-11-15] MEDS: LACTULOSE 30ML CUP PO SCH ×2 (09:00→21:00)
[2018-11-15] MEDS: RIFAXIMIN 550 MG TAB PO SCH ×2 (11:46→21:10)
[2018-11-15] MEDS: MULTIVITAMINS THERAPEUTIC TAB PO SCH (11:48)
[2018-11-15] MEDS: SUCRALFATE (100 MG/ML) 10ML CUP PO SCH ×4 (11:49→21:19)
[2018-11-15] MEDS: THIAMINE 100 MG TAB PO SCH (11:49)
[2018-11-15] MEDS: CHLORDIAZEPOXIDE 5 MG CAP PO SCH ×3 (11:49→21:11)
[2018-11-15] MEDS: FOLIC ACID 1 MG TAB PO SCH (11:49)
[2018-11-15] MEDS: PROPRANOLOL 10 MG TAB PO SCH ×2 (11:51→21:10)
[2018-11-15 14:00] VITALS: BP 128/76; PULSE 64; RESP 20
[2018-11-15 20:01] VITALS: BP 104/57; PULSE 76; RESP 17
[2018-11-15 20:30] VITALS: RESP 18
[2018-11-16 02:00] VITALS: BP 108/58; PULSE 72; RESP 18
[2018-11-16 02:30] VITALS: RESP 19
[2018-11-16] MEDS: QUETIAPINE 100 MG TAB PO PRN ×2 (04:05→21:47)
[2018-11-16] MEDS: PANTOPRAZOLE (EC) 40 MG TAB PO SCH ×2 (05:05→17:05)
[2018-11-16 08:13] VITALS: BP 117/63; PULSE 77; RESP 18
[2018-11-16] MEDS: LACTULOSE 30ML CUP PO SCH ×2 (09:00→21:00)
[2018-11-16] MEDS: SUCRALFATE (100 MG/ML) 10ML CUP PO SCH ×4 (09:00→21:00)
[2018-11-16] MEDS: THIAMINE 100 MG TAB PO SCH (09:29)
[2018-11-16] MEDS: CHLORDIAZEPOXIDE 5 MG CAP PO SCH ×3 (09:29→21:44)
[2018-11-16] MEDS: RIFAXIMIN 550 MG TAB PO SCH ×2 (09:29→21:44)
[2018-11-16] MEDS: MULTIVITAMINS THERAPEUTIC TAB PO SCH (09:29)
[2018-11-16] MEDS: PROPRANOLOL 10 MG TAB PO SCH ×2 (09:30→21:45)
[2018-11-16] MEDS: FOLIC ACID 1 MG TAB PO SCH (09:30)
[2018-11-16 20:40] VITALS: BP 118/58; PULSE 69; RESP 20
[2018-11-17 02:16] VITALS: BP 120/64; PULSE 78; RESP 18
[2018-11-17] MEDS: PANTOPRAZOLE (EC) 40 MG TAB PO SCH ×2 (06:08→17:20)
[2018-11-17 08:11] VITALS: BP 133/91; PULSE 77; RESP 19
[2018-11-17] MEDS: SUCRALFATE (100 MG/ML) 10ML CUP PO SCH ×4 (08:28→20:40)
[2018-11-17] MEDS: LACTULOSE 30ML CUP PO SCH ×2 (08:29→20:40)
[2018-11-17] MEDS: RIFAXIMIN 550 MG TAB PO SCH ×2 (08:29→20:39)
[2018-11-17] MEDS: FOLIC ACID 1 MG TAB PO SCH (08:29)
[2018-11-17] MEDS: THIAMINE 100 MG TAB PO SCH (08:29)
[2018-11-17] MEDS: CHLORDIAZEPOXIDE 5 MG CAP PO SCH ×2 (08:29→12:41)
[2018-11-17] MEDS: PROPRANOLOL 10 MG TAB PO SCH ×2 (08:30→20:40)
[2018-11-17] MEDS: MULTIVITAMINS THERAPEUTIC TAB PO SCH (08:30)
[2018-11-17 14:00] VITALS: BP 99/58; PULSE 76; RESP 17
[2018-11-17] MEDS: QUETIAPINE 100 MG TAB PO PRN ×2 (16:04→23:02)
[2018-11-17 18:06] VITALS: BP 107/59; PULSE 78; RESP 17
[2018-11-17 20:00] VITALS: BP 102/63; PULSE 75; RESP 18
[2018-11-18 02:56] VITALS: BP 137/66; PULSE 74; RESP 17
[2018-11-18] MEDS: PANTOPRAZOLE (EC) 40 MG TAB PO SCH ×3 (05:32→17:05)
[2018-11-18 07:24] VITALS: BP 97/54; PULSE 78; RESP 16
[2018-11-18] MEDS: MULTIVITAMINS THERAPEUTIC TAB PO SCH (08:45)
[2018-11-18] MEDS: RIFAXIMIN 550 MG TAB PO SCH ×2 (08:45→21:17)
[2018-11-18] MEDS: LACTULOSE 30ML CUP PO SCH ×2 (08:45→21:17)
[2018-11-18] MEDS: FOLIC ACID 1 MG TAB PO SCH (08:45)
[2018-11-18] MEDS: SUCRALFATE (100 MG/ML) 10ML CUP PO SCH ×4 (08:45→21:17)
[2018-11-18] MEDS: PROPRANOLOL 10 MG TAB PO SCH ×2 (08:45→21:17)
[2018-11-18] MEDS: THIAMINE 100 MG TAB PO SCH (08:46)
[2018-11-18 13:44] VITALS: BP 107/62; PULSE 76; RESP 18
[2018-11-18 20:00] VITALS: BP 129/77; PULSE 82; RESP 18
[2018-11-18] MEDS: LORAZEPAM 1 MG TAB PO PRN (21:55)
[2018-11-19 02:00] VITALS: BP 164/67; PULSE 82; RESP 18
[2018-11-19] MEDS: LORAZEPAM 1 MG TAB PO PRN ×2 (05:23→23:57)
[2018-11-19] MEDS: PANTOPRAZOLE (EC) 40 MG TAB PO SCH ×2 (05:29→17:12)
[2018-11-19 07:21] VITALS: BP 108/65; PULSE 78; RESP 18
[2018-11-19] MEDS: RIFAXIMIN 550 MG TAB PO SCH ×2 (09:53→21:26)
[2018-11-19] MEDS: THIAMINE 100 MG TAB PO SCH (09:53)
[2018-11-19] MEDS: LACTULOSE 30ML CUP PO SCH ×2 (09:53→17:12)
[2018-11-19] MEDS: SUCRALFATE (100 MG/ML) 10ML CUP PO SCH ×4 (09:53→21:26)
[2018-11-19] MEDS: FOLIC ACID 1 MG TAB PO SCH (09:54)
[2018-11-19] MEDS: MULTIVITAMINS THERAPEUTIC TAB PO SCH (09:54)
[2018-11-19] MEDS: PROPRANOLOL 10 MG TAB PO SCH ×2 (09:54→21:26)
[2018-11-19 14:03] VITALS: BP 131/77; PULSE 76; RESP 16
[2018-11-19 19:34] VITALS: BP 110/59; PULSE 71; RESP 18
[2018-11-19] MEDS: QUETIAPINE 100 MG TAB PO PRN (22:31)
[2018-11-20 01:41] VITALS: BP 90/43; PULSE 76; RESP 18
[2018-11-20] MEDS ORDERED: HALOPERIDOL 5 MG INJ IM ONE (02:30)
[2018-11-20] MEDS ORDERED: LORAZEPAM 2 MG INJ IM ONE (02:30)
[2018-11-20] MEDS: PANTOPRAZOLE (EC) 40 MG TAB PO SCH ×2 (06:00→17:27)
[2018-11-20 07:28] VITALS: BP 107/86; PULSE 75; RESP 16
[2018-11-20] MEDS: SUCRALFATE (100 MG/ML) 10ML CUP PO SCH ×4 (08:18→20:45)
[2018-11-20] MEDS: THIAMINE 100 MG TAB PO SCH (08:18)
[2018-11-20] MEDS: LACTULOSE 30ML CUP PO SCH ×3 (08:18→17:27)
[2018-11-20] MEDS: RIFAXIMIN 550 MG TAB PO SCH ×2 (08:18→20:48)
[2018-11-20] MEDS: PROPRANOLOL 10 MG TAB PO SCH ×2 (08:19→20:48)
[2018-11-20] MEDS: FOLIC ACID 1 MG TAB PO SCH (08:19)
[2018-11-20] MEDS: MULTIVITAMINS THERAPEUTIC TAB PO SCH (08:19)
[2018-11-20 14:14] VITALS: BP 103/65; PULSE 79; RESP 18
[2018-11-20] MEDS ORDERED: LORAZEPAM 1 MG TAB JT PRN (15:30)
[2018-11-20 16:10] VITALS: PULSE 107
[2018-11-20 20:03] VITALS: BP 99/79; PULSE 79; RESP 16
[2018-11-21] MEDS: LACTULOSE 30ML CUP PO SCH ×3 (00:22→18:25)
[2018-11-21] MEDS: LORAZEPAM 1 MG TAB PO PRN ×2 (00:55→12:21)
[2018-11-21 02:00] VITALS: BP 94/51; PULSE 88; RESP 18
[2018-11-21] MEDS: PANTOPRAZOLE (EC) 40 MG TAB PO SCH ×2 (05:29→18:54)
[2018-11-21 07:46] VITALS: BP 119/63; PULSE 88; RESP 18
[2018-11-21] MEDS: MULTIVITAMINS THERAPEUTIC TAB PO SCH (09:45)
[2018-11-21] MEDS: FOLIC ACID 1 MG TAB PO SCH (09:45)
[2018-11-21] MEDS: SUCRALFATE (100 MG/ML) 10ML CUP PO SCH ×4 (09:45→21:12)
[2018-11-21] MEDS: RIFAXIMIN 550 MG TAB PO SCH ×2 (09:45→21:12)
[2018-11-21] MEDS: THIAMINE 100 MG TAB PO SCH (09:54)
[2018-11-21] MEDS: PROPRANOLOL 10 MG TAB PO SCH ×2 (10:19→21:12)
[2018-11-21 14:23] VITALS: BP 128/76; PULSE 78; RESP 18
[2018-11-21] MEDS: ALBUMIN HUMAN 25% 100 ML IV SCH ×2 (15:08→22:07)
[2018-11-21 20:00] VITALS: BP 118/72; PULSE 82; RESP 18
[2018-11-21] MEDS: QUETIAPINE 100 MG TAB PO PRN (21:35)
[2018-11-21] MEDS ORDERED: LORAZEPAM 2 MG INJ IV ONE (22:00)
[2018-11-22] MEDS: LACTULOSE 30ML CUP PO SCH ×3 (01:12→17:20)
[2018-11-22 02:00] VITALS: BP 119/64; PULSE 78; RESP 18
[2018-11-22] MEDS: PANTOPRAZOLE (EC) 40 MG TAB PO SCH ×2 (06:25→17:20)
[2018-11-22] MEDS: ALBUMIN HUMAN 25% 100 ML IV SCH (06:25)
[2018-11-22 07:46] VITALS: BP 119/62; PULSE 80; RESP 16
[2018-11-22] MEDS: RIFAXIMIN 550 MG TAB PO SCH ×2 (08:49→21:14)
[2018-11-22] MEDS: THIAMINE 100 MG TAB PO SCH (08:49)
[2018-11-22] MEDS: SUCRALFATE (100 MG/ML) 10ML CUP PO SCH ×4 (08:49→21:14)
[2018-11-22] MEDS: FOLIC ACID 1 MG TAB PO SCH (08:49)
[2018-11-22] MEDS: MULTIVITAMINS THERAPEUTIC TAB PO SCH (08:49)
[2018-11-22] MEDS: PROPRANOLOL 10 MG TAB PO SCH ×2 (08:50→21:14)
[2018-11-22 14:00] VITALS: BP 117/59; PULSE 79; RESP 18
[2018-11-22 19:17] VITALS: BP 130/79; PULSE 81; RESP 18
[2018-11-22] MEDS: LORAZEPAM 1 MG TAB PO PRN (21:14)
[2018-11-22] MEDS: ALLOPURINOL 100 MG TAB PO SCH (21:14)
[2018-11-22] MEDS: HALOPERIDOL 5 MG INJ IM PRN ×2 (21:52→23:00)
[2018-11-22] MEDS: QUETIAPINE 100 MG TAB PO PRN ×2 (21:56→22:02)
[2018-11-23] MEDS: LACTULOSE 30ML CUP PO SCH ×5 (01:15→20:40)
[2018-11-23 01:18] VITALS: BP 109/58; PULSE 71; RESP 18
[2018-11-23] MEDS ORDERED: DIAZEPAM 10 MG/2 ML SYG IV ONE (02:00)
[2018-11-23] MEDS ORDERED: HALOPERIDOL 5 MG INJ IM ONE (02:00)
[2018-11-23] MEDS: PANTOPRAZOLE (EC) 40 MG TAB PO SCH ×3 (06:00→17:12)
[2018-11-23] MEDS: LORAZEPAM 1 MG TAB PO PRN (06:01)
[2018-11-23 08:28] VITALS: BP 127/59; PULSE 78; RESP 19
[2018-11-23] MEDS: THIAMINE 100 MG TAB PO SCH (10:12)
[2018-11-23] MEDS: ALLOPURINOL 100 MG TAB PO SCH ×2 (10:12→20:40)
[2018-11-23] MEDS: MULTIVITAMINS THERAPEUTIC TAB PO SCH (10:13)
[2018-11-23] MEDS: FOLIC ACID 1 MG TAB PO SCH (10:13)
[2018-11-23] MEDS: RIFAXIMIN 550 MG TAB PO SCH ×2 (10:13→20:40)
[2018-11-23] MEDS: PROPRANOLOL 10 MG TAB PO SCH ×2 (10:13→20:40)
[2018-11-23] MEDS: SUCRALFATE (100 MG/ML) 10ML CUP PO SCH ×4 (10:13→20:39)
[2018-11-23 13:33] VITALS: BP 118/67; PULSE 80; RESP 19
[2018-11-23 20:37] VITALS: BP 137/69; PULSE 93; RESP 20
[2018-11-24] MEDS: SUCRALFATE (100 MG/ML) 10ML CUP PO SCH ×6 (00:15→21:00)
[2018-11-24] MEDS: PROPRANOLOL 10 MG TAB PO SCH ×3 (00:17→21:00)
[2018-11-24] MEDS: LACTULOSE 30ML CUP PO SCH ×7 (00:17→21:00)
[2018-11-24] MEDS: RIFAXIMIN 550 MG TAB PO SCH ×3 (00:17→21:00)
[2018-11-24] MEDS: ALLOPURINOL 100 MG TAB PO SCH ×3 (00:18→21:00)
[2018-11-24 01:24] VITALS: BP 124/62; PULSE 84; RESP 16
[2018-11-24] MEDS: ALBUTEROL 0.083% (NEB) 2.5 MG/3 ML AMP HHN PRN (01:41)
[2018-11-24] MEDS: PANTOPRAZOLE (EC) 40 MG TAB PO SCH ×2 (06:24→17:38)
[2018-11-24 08:16] VITALS: BP 99/51; PULSE 65; RESP 17
[2018-11-24] MEDS: THIAMINE 100 MG TAB PO SCH (09:00)
[2018-11-24] MEDS: FOLIC ACID 1 MG TAB PO SCH (09:00)
[2018-11-24] MEDS: MULTIVITAMINS THERAPEUTIC TAB PO SCH (09:00)
[2018-11-24 14:34] VITALS: BP 122/75; PULSE 89; RESP 18
[2018-11-24] MEDS: D5W-0.45 NACL + KCL 20 MEQ 1,000 ML IV SCH (18:35)
[2018-11-24 20:00] VITALS: BP 126/60; PULSE 69; RESP 18
[2018-11-25] MEDS: LACTULOSE 30ML CUP PO SCH ×6 (01:00→20:44)
[2018-11-25] MEDS: PANTOPRAZOLE (EC) 40 MG TAB PO SCH ×2 (05:58→17:09)
[2018-11-25] MEDS: D5W-0.45 NACL + KCL 20 MEQ 1,000 ML IV SCH ×2 (06:43→13:14)
[2018-11-25 07:44] VITALS: BP 135/68; PULSE 83; RESP 20
[2018-11-25] MEDS: MULTIVITAMINS THERAPEUTIC TAB PO SCH (08:11)
[2018-11-25] MEDS: FOLIC ACID 1 MG TAB PO SCH (08:11)
[2018-11-25] MEDS: THIAMINE 200 MG INJ IM SCH ×2 (08:11→13:47)
[2018-11-25] MEDS: RIFAXIMIN 550 MG TAB PO SCH ×2 (08:11→20:45)
[2018-11-25] MEDS: ALLOPURINOL 100 MG TAB PO SCH ×2 (08:11→20:46)
[2018-11-25] MEDS: SUCRALFATE (100 MG/ML) 10ML CUP PO SCH ×4 (08:11→20:44)
[2018-11-25] MEDS: PROPRANOLOL 10 MG TAB PO SCH ×2 (08:12→20:46)
[2018-11-25 14:00] VITALS: BP 140/6; PULSE 91; RESP 18
[2018-11-25] MEDS: LORAZEPAM 2 MG INJ IV PRN (17:26)
[2018-11-25 20:00] VITALS: BP 144/67; PULSE 90; RESP 18
[2018-11-25] MEDS: QUETIAPINE 100 MG TAB PO PRN (20:45)
[2018-11-26] MEDS: LACTULOSE 30ML CUP PO SCH ×7 (00:27→20:31)
[2018-11-26 02:00] VITALS: BP 124/57; PULSE 83; RESP 18
[2018-11-26] MEDS: LORAZEPAM 2 MG INJ IV PRN (02:18)
[2018-11-26] MEDS: PANTOPRAZOLE (EC) 40 MG TAB PO SCH ×2 (05:14→17:27)
[2018-11-26 07:54] VITALS: BP 106/61; PULSE 90; RESP 18
[2018-11-26] MEDS: D5W-0.45 NACL + KCL 20 MEQ 1,000 ML IV SCH (08:39)
[2018-11-26] MEDS: THIAMINE 200 MG INJ IM SCH (09:00)
[2018-11-26] MEDS: SUCRALFATE (100 MG/ML) 10ML CUP PO SCH ×4 (09:00→20:31)
[2018-11-26] MEDS: PROPRANOLOL 10 MG TAB PO SCH ×2 (09:00→20:31)
[2018-11-26] MEDS: ALLOPURINOL 100 MG TAB PO SCH ×2 (09:00→20:31)
[2018-11-26] MEDS: RIFAXIMIN 550 MG TAB PO SCH ×2 (09:00→20:31)
[2018-11-26] MEDS: FOLIC ACID 1 MG TAB PO SCH (09:00)
[2018-11-26] MEDS: MULTIVITAMINS THERAPEUTIC TAB PO SCH (09:00)
[2018-11-26 14:00] VITALS: BP 117/75; PULSE 67; RESP 18
[2018-11-26 19:22] VITALS: BP 138/83; PULSE 89; RESP 18
[2018-11-27] MEDS: LACTULOSE 30ML CUP PO SCH ×6 (00:12→21:00)
[2018-11-27 02:11] VITALS: BP 138/76; PULSE 89; RESP 18
[2018-11-27] MEDS: PANTOPRAZOLE (EC) 40 MG TAB PO SCH ×2 (05:58→17:18)
[2018-11-27 07:29] VITALS: BP 122/65; PULSE 72; RESP 18
[2018-11-27] MEDS: ALLOPURINOL 100 MG TAB PO SCH ×2 (09:13→21:00)
[2018-11-27] MEDS: SUCRALFATE (100 MG/ML) 10ML CUP PO SCH ×4 (09:13→20:59)
[2018-11-27] MEDS: MULTIVITAMINS THERAPEUTIC TAB PO SCH (09:13)
[2018-11-27] MEDS: FOLIC ACID 1 MG TAB PO SCH (09:14)
[2018-11-27] MEDS: THIAMINE 200 MG INJ IM SCH (09:14)
[2018-11-27] MEDS: RIFAXIMIN 550 MG TAB PO SCH ×2 (09:14→21:00)
[2018-11-27] MEDS: PROPRANOLOL 10 MG TAB PO SCH ×2 (09:15→21:00)
[2018-11-27 14:06] VITALS: BP 117/72; PULSE 73; RESP 18
[2018-11-28] MEDS: LACTULOSE 30ML CUP PO SCH ×7 (00:40→23:12)
[2018-11-28 01:48] VITALS: BP 103/56; PULSE 79; RESP 18
[2018-11-28 08:00] VITALS: BP 119/66; PULSE 79; RESP 18
[2018-11-28] MEDS: PROPRANOLOL 10 MG TAB PO SCH ×3 (09:00→23:12)
[2018-11-28] MEDS: RIFAXIMIN 550 MG TAB PO SCH ×4 (09:00→23:11)
[2018-11-28] MEDS: SUCRALFATE (100 MG/ML) 10ML CUP PO SCH ×5 (09:00→23:12)
[2018-11-28] MEDS: THIAMINE 200 MG INJ IM SCH ×2 (09:00→09:15)
[2018-11-28] MEDS: MULTIVITAMINS THERAPEUTIC TAB PO SCH ×2 (09:00→09:15)
[2018-11-28] MEDS: ALLOPURINOL 100 MG TAB PO SCH ×3 (09:00→23:12)
[2018-11-28] MEDS: FOLIC ACID 1 MG TAB PO SCH ×2 (09:00→09:15)
[2018-11-28 14:00] VITALS: BP 105/60; PULSE 72; RESP 18
[2018-11-28] MEDS: PANTOPRAZOLE (EC) 40 MG TAB PO SCH (17:40)
[2018-11-29] MEDS ORDERED: HALOPERIDOL 5 MG INJ IM ONE ×2 (01:00→21:00)
[2018-11-29] MEDS ORDERED: LORAZEPAM 2 MG INJ IV ONE ×2 (01:00→21:00)
[2018-11-29] MEDS: LACTULOSE 30ML CUP PO SCH ×6 (01:00→21:59)
[2018-11-29 01:32] VITALS: BP 107/75; PULSE 77; RESP 17
[2018-11-29] MEDS: PANTOPRAZOLE (EC) 40 MG TAB PO SCH ×2 (05:46→17:28)
[2018-11-29 07:31] VITALS: BP 117/69; PULSE 70; RESP 18
[2018-11-29] MEDS: SUCRALFATE (100 MG/ML) 10ML CUP PO SCH ×4 (09:00→21:00)
[2018-11-29] MEDS: FOLIC ACID 1 MG TAB PO SCH (09:00)
[2018-11-29] MEDS: ALLOPURINOL 100 MG TAB PO SCH ×2 (09:00→21:00)
[2018-11-29] MEDS: MULTIVITAMINS THERAPEUTIC TAB PO SCH (09:00)
[2018-11-29] MEDS: THIAMINE 200 MG INJ IM SCH (09:00)
[2018-11-29] MEDS: PROPRANOLOL 10 MG TAB PO SCH ×2 (09:00→21:59)
[2018-11-29] MEDS: RIFAXIMIN 550 MG TAB PO SCH ×2 (09:00→21:59)
[2018-11-29 14:00] VITALS: BP 135/67; PULSE 65; RESP 18
[2018-11-29 19:00] VITALS: BP 138/95; PULSE 94; RESP 18
[2018-11-30] MEDS: LACTULOSE 30ML CUP PO SCH ×6 (01:00→20:55)
[2018-11-30 01:43] VITALS: BP 148/85; PULSE 94; RESP 18
[2018-11-30] MEDS: PANTOPRAZOLE (EC) 40 MG TAB PO SCH ×2 (05:29→16:40)
[2018-11-30 08:00] VITALS: BP 117/76; PULSE 82; RESP 16
[2018-11-30] MEDS: FOLIC ACID 1 MG TAB PO SCH (08:57)
[2018-11-30] MEDS: SUCRALFATE (100 MG/ML) 10ML CUP PO SCH ×4 (08:57→20:55)
[2018-11-30] MEDS: PROPRANOLOL 10 MG TAB PO SCH ×2 (08:58→20:55)
[2018-11-30] MEDS: MULTIVITAMINS THERAPEUTIC TAB PO SCH (08:58)
[2018-11-30] MEDS: ALLOPURINOL 100 MG TAB PO SCH ×2 (08:58→20:55)
[2018-11-30] MEDS: RIFAXIMIN 550 MG TAB PO SCH ×2 (08:58→20:55)
[2018-11-30] MEDS: THIAMINE 200 MG INJ IM SCH (10:51)
[2018-11-30 14:00] VITALS: BP 126/82; PULSE 79; RESP 20
[2018-11-30] MEDS: SOD CHLORIDE 0.9% 1,000 ML IV SCH (18:21)
[2018-11-30] MEDS ORDERED: LORAZEPAM 2 MG INJ IV ONE (18:30)
[2018-11-30 20:00] VITALS: BP 123/87; PULSE 85; RESP 20
[2018-11-30] MEDS: QUETIAPINE 100 MG TAB PO SCH (20:55)
[2018-11-30] MEDS: LORAZEPAM 2 MG INJ IV PRN (20:56)
[2018-12-01] MEDS: LACTULOSE 30ML CUP PO SCH ×6 (00:02→23:07)
[2018-12-01 02:00] VITALS: BP 101/73; PULSE 74; RESP 20
[2018-12-01] MEDS: PANTOPRAZOLE (EC) 40 MG TAB PO SCH ×2 (06:00→17:20)
[2018-12-01] MEDS: SOD CHLORIDE 0.9% 1,000 ML IV SCH ×2 (06:07→18:01)
[2018-12-01 07:46] VITALS: BP 95/55; PULSE 68; RESP 17
[2018-12-01] MEDS: SUCRALFATE (100 MG/ML) 10ML CUP PO SCH ×4 (09:34→23:07)
[2018-12-01] MEDS: THIAMINE 200 MG INJ IM SCH (09:34)
[2018-12-01] MEDS: MULTIVITAMINS THERAPEUTIC TAB PO SCH (09:34)
[2018-12-01] MEDS: ALLOPURINOL 100 MG TAB PO SCH ×2 (09:35→23:07)
[2018-12-01] MEDS: RIFAXIMIN 550 MG TAB PO SCH ×2 (09:35→23:08)
[2018-12-01] MEDS: QUETIAPINE 100 MG TAB PO SCH ×2 (09:35→23:08)
[2018-12-01] MEDS: FOLIC ACID 1 MG TAB PO SCH (09:35)
[2018-12-01] MEDS: PROPRANOLOL 10 MG TAB PO SCH ×2 (09:37→23:08)
[2018-12-01 13:30] VITALS: BP 100/59; PULSE 74; RESP 17
[2018-12-01 19:23] VITALS: BP 106/62; PULSE 75; RESP 20
[2018-12-01] MEDS: LORAZEPAM 2 MG INJ IV PRN (23:08)
[2018-12-02 01:30] VITALS: BP 108/67; PULSE 88; RESP 20
[2018-12-02] MEDS: LACTULOSE 30ML CUP PO SCH ×7 (02:27→20:57)
[2018-12-02] MEDS ORDERED: DIPHENHYDRAMINE 50 MG INJ IV ONE (04:30)
[2018-12-02] MEDS ORDERED: LORAZEPAM 2 MG INJ IV ONE (04:30)
[2018-12-02] MEDS: SOD CHLORIDE 0.9% 1,000 ML IV SCH ×2 (05:20→17:46)
[2018-12-02] MEDS: PANTOPRAZOLE (EC) 40 MG TAB PO SCH ×2 (05:28→17:42)
[2018-12-02 08:18] VITALS: BP 107/67; PULSE 85; RESP 19
[2018-12-02] MEDS: RIFAXIMIN 550 MG TAB PO SCH ×3 (09:00→20:58)
[2018-12-02] MEDS: FOLIC ACID 1 MG TAB PO SCH ×2 (09:00→09:33)
[2018-12-02] MEDS: ASCORBIC ACID 250 MG TAB PO SCH (09:00)
[2018-12-02] MEDS: PROPRANOLOL 10 MG TAB PO SCH ×3 (09:00→20:58)
[2018-12-02] MEDS: QUETIAPINE 100 MG TAB PO SCH ×3 (09:00→20:58)
[2018-12-02] MEDS: ALLOPURINOL 100 MG TAB PO SCH ×3 (09:00→20:58)
[2018-12-02] MEDS: MULTIVITAMINS THERAPEUTIC TAB PO SCH ×2 (09:00→09:32)
[2018-12-02] MEDS: SUCRALFATE (100 MG/ML) 10ML CUP PO SCH ×5 (09:00→20:57)
[2018-12-02] MEDS: MULTIVITAMINS/MINERALS TAB PO SCH ×2 (09:00→09:32)
[2018-12-02] MEDS: THIAMINE 200 MG INJ IM SCH (09:31)
[2018-12-02] MEDS: ALBUTEROL 0.083% (NEB) 2.5 MG/3 ML AMP HHN PRN (10:56)
[2018-12-02] MEDS ORDERED: FLUMAZENIL 0.5 MG INJ IV ONE (11:00)
[2018-12-02] MEDS ORDERED: LACTULOSE ENEMA 1,000 ML BTL PR ONE (12:00)
[2018-12-02 14:26] VITALS: BP 125/82; PULSE 82; RESP 20
[2018-12-02 19:29] VITALS: BP 115/55; PULSE 86; RESP 18
[2018-12-03] MEDS: LACTULOSE 30ML CUP PO SCH ×6 (00:22→21:15)
[2018-12-03 01:44] VITALS: BP 107/66; PULSE 81; RESP 19
[2018-12-03] MEDS: PANTOPRAZOLE (EC) 40 MG TAB PO SCH ×2 (06:00→18:00)
[2018-12-03] MEDS ORDERED: SOD CHLORIDE 0.9% 500 ML IV ONE (07:00)
[2018-12-03 07:21] VITALS: BP 110/64; PULSE 70; RESP 18
[2018-12-03] MEDS: SOD CHLORIDE 0.9% 1,000 ML IV SCH ×2 (09:23→22:04)
[2018-12-03] MEDS: THIAMINE 200 MG INJ IM SCH (10:33)
[2018-12-03] MEDS: SUCRALFATE (100 MG/ML) 10ML CUP PO SCH ×4 (10:33→21:15)
[2018-12-03] MEDS: MULTIVITAMINS THERAPEUTIC TAB PO SCH (10:34)
[2018-12-03] MEDS: ASCORBIC ACID 250 MG TAB PO SCH (10:34)
[2018-12-03] MEDS: MULTIVITAMINS/MINERALS TAB PO SCH (10:34)
[2018-12-03] MEDS: QUETIAPINE 100 MG TAB PO SCH ×2 (10:34→21:14)
[2018-12-03] MEDS: PROPRANOLOL 10 MG TAB PO SCH ×2 (10:35→21:15)
[2018-12-03] MEDS: RIFAXIMIN 550 MG TAB PO SCH ×2 (10:35→21:14)
[2018-12-03] MEDS: FOLIC ACID 1 MG TAB PO SCH (10:35)
[2018-12-03] MEDS: ALLOPURINOL 100 MG TAB PO SCH ×2 (10:36→21:14)
[2018-12-03 14:09] VITALS: BP 119/63; PULSE 71; RESP 16
[2018-12-03 19:32] VITALS: BP 115/66; PULSE 73; RESP 18
[2018-12-03] MEDS ORDERED: ZOLPIDEM 5 MG TAB PO ONE (23:30)
[2018-12-04] MEDS: LACTULOSE 30ML CUP PO SCH ×8 (00:08→21:00)
[2018-12-04 03:30] VITALS: BP 103/68; PULSE 73; RESP 16
[2018-12-04] MEDS: PANTOPRAZOLE (EC) 40 MG TAB PO SCH ×3 (05:11→17:10)
[2018-12-04 07:31] VITALS: BP 92/44; PULSE 73; RESP 18
[2018-12-04] MEDS: ASCORBIC ACID 250 MG TAB PO SCH (08:54)
[2018-12-04] MEDS: QUETIAPINE 100 MG TAB PO SCH ×2 (08:54→21:00)
[2018-12-04] MEDS: FOLIC ACID 1 MG TAB PO SCH (08:54)
[2018-12-04] MEDS: MULTIVITAMINS THERAPEUTIC TAB PO SCH (08:54)
[2018-12-04] MEDS: THIAMINE 200 MG INJ IM SCH (08:54)
[2018-12-04] MEDS: SUCRALFATE (100 MG/ML) 10ML CUP PO SCH ×5 (08:54→21:00)
[2018-12-04] MEDS: MULTIVITAMINS/MINERALS TAB PO SCH (08:54)
[2018-12-04] MEDS: RIFAXIMIN 550 MG TAB PO SCH ×2 (08:54→21:00)
[2018-12-04] MEDS: ALLOPURINOL 100 MG TAB PO SCH ×2 (08:54→21:00)
[2018-12-04 08:58] VITALS: BP 98/70; PULSE 70; RESP 18
[2018-12-04 09:29] VITALS: BP 114/63; PULSE 72; RESP 18
[2018-12-04] MEDS: SOD CHLORIDE 0.9% 1,000 ML IV SCH ×2 (11:17→22:58)
[2018-12-04] MEDS: PROPRANOLOL 10 MG TAB PO SCH ×2 (12:20→21:00)
[2018-12-04 14:15] VITALS: BP 112/63; PULSE 86; RESP 18
[2018-12-04 19:36] VITALS: BP 125/64; PULSE 77; RESP 20
[2018-12-05] MEDS ORDERED: ZOLPIDEM 5 MG TAB PO PRN (01:00)
[2018-12-05] MEDS: LACTULOSE 30ML CUP PO SCH ×6 (01:29→20:41)
[2018-12-05 02:00] VITALS: BP 128/69; PULSE 88; RESP 20
[2018-12-05] MEDS: PANTOPRAZOLE (EC) 40 MG TAB PO SCH ×2 (05:26→18:10)
[2018-12-05 08:04] VITALS: BP 119/56; PULSE 84; RESP 20
[2018-12-05] MEDS: MULTIVITAMINS THERAPEUTIC TAB PO SCH (08:39)
[2018-12-05] MEDS: QUETIAPINE 100 MG TAB PO SCH ×2 (08:39→20:41)
[2018-12-05] MEDS: SUCRALFATE (100 MG/ML) 10ML CUP PO SCH ×4 (08:39→20:41)
[2018-12-05] MEDS: PROPRANOLOL 10 MG TAB PO SCH ×2 (08:39→20:41)
[2018-12-05] MEDS: MULTIVITAMINS/MINERALS TAB PO SCH (08:39)
[2018-12-05] MEDS: FOLIC ACID 1 MG TAB PO SCH (08:39)
[2018-12-05] MEDS: ASCORBIC ACID 250 MG TAB PO SCH (08:39)
[2018-12-05] MEDS: RIFAXIMIN 550 MG TAB PO SCH ×2 (08:39→20:41)
[2018-12-05] MEDS: ALLOPURINOL 100 MG TAB PO SCH ×2 (08:39→20:42)
[2018-12-05] MEDS: THIAMINE 200 MG INJ IM SCH (08:40)
[2018-12-05] MEDS: SOD CHLORIDE 0.9% 1,000 ML IV SCH (11:43)
[2018-12-05 14:00] VITALS: BP 133/72; PULSE 78; RESP 18
[2018-12-05 20:18] VITALS: BP 123/79; PULSE 76; RESP 18
[2018-12-05] MEDS: SOD CHLORIDE 0.45% 1,000 ML IV SCH (20:40)
[2018-12-06] MEDS: LACTULOSE 30ML CUP PO SCH ×7 (00:15→21:08)
[2018-12-06 02:16] VITALS: BP 126/71; PULSE 74; RESP 18
[2018-12-06] MEDS: PANTOPRAZOLE (EC) 40 MG TAB PO SCH ×2 (05:32→17:29)
[2018-12-06 08:07] VITALS: BP 125/75; PULSE 78; RESP 18
[2018-12-06] MEDS: QUETIAPINE 100 MG TAB PO SCH ×2 (08:49→21:07)
[2018-12-06] MEDS: ASCORBIC ACID 250 MG TAB PO SCH (08:49)
[2018-12-06] MEDS: ALLOPURINOL 100 MG TAB PO SCH ×2 (08:49→21:08)
[2018-12-06] MEDS: FOLIC ACID 1 MG TAB PO SCH (08:49)
[2018-12-06] MEDS: SUCRALFATE (100 MG/ML) 10ML CUP PO SCH ×5 (08:49→21:08)
[2018-12-06] MEDS: RIFAXIMIN 550 MG TAB PO SCH ×2 (08:49→21:08)
[2018-12-06] MEDS: THIAMINE 200 MG INJ IM SCH (08:49)
[2018-12-06] MEDS: MULTIVITAMINS/MINERALS TAB PO SCH (08:49)
[2018-12-06] MEDS: MULTIVITAMINS THERAPEUTIC TAB PO SCH (08:50)
[2018-12-06] MEDS: PROPRANOLOL 10 MG TAB PO SCH ×2 (08:50→21:08)
[2018-12-06] MEDS: SOD CHLORIDE 0.45% 1,000 ML IV SCH ×2 (08:52→21:13)
[2018-12-06 13:47] VITALS: BP 109/78; PULSE 72; RESP 19
[2018-12-06 19:25] VITALS: BP 114/66; PULSE 74; RESP 18
[2018-12-07] MEDS: LACTULOSE 30ML CUP PO SCH ×6 (01:10→21:20)
[2018-12-07 02:00] VITALS: BP 129/70; PULSE 76; RESP 19
[2018-12-07] MEDS: PANTOPRAZOLE (EC) 40 MG TAB PO SCH ×2 (05:39→17:20)
[2018-12-07 08:20] VITALS: BP 103/52; PULSE 75; RESP 18
[2018-12-07] MEDS: PROPRANOLOL 10 MG TAB PO SCH ×2 (09:00→21:20)
[2018-12-07] MEDS: FOLIC ACID 1 MG TAB PO SCH (09:19)
[2018-12-07] MEDS: ALLOPURINOL 100 MG TAB PO SCH ×2 (09:19→21:20)
[2018-12-07] MEDS: MULTIVITAMINS THERAPEUTIC TAB PO SCH (09:19)
[2018-12-07] MEDS: SUCRALFATE (100 MG/ML) 10ML CUP PO SCH ×4 (09:19→21:20)
[2018-12-07] MEDS: ASCORBIC ACID 250 MG TAB PO SCH (09:19)
[2018-12-07] MEDS: MULTIVITAMINS/MINERALS TAB PO SCH (09:19)
[2018-12-07] MEDS: THIAMINE 200 MG INJ IM SCH (09:19)
[2018-12-07] MEDS: RIFAXIMIN 550 MG TAB PO SCH ×2 (09:19→21:20)
[2018-12-07] MEDS: SOD CHLORIDE 0.45% 1,000 ML IV SCH ×2 (09:19→21:28)
[2018-12-07] MEDS: QUETIAPINE 100 MG TAB PO SCH ×2 (09:19→21:20)
[2018-12-07 14:14] VITALS: BP 121/78; PULSE 78; RESP 19
[2018-12-07 20:00] VITALS: BP 116/59; PULSE 75; RESP 19
[2018-12-08] MEDS: LACTULOSE 30ML CUP PO SCH ×6 (01:00→20:14)
[2018-12-08 02:00] VITALS: BP 118/69; PULSE 77; RESP 20
[2018-12-08] MEDS: PANTOPRAZOLE (EC) 40 MG TAB PO SCH ×2 (05:23→18:17)
[2018-12-08 08:47] VITALS: BP 109/57; PULSE 76; RESP 18
[2018-12-08] MEDS: PROPRANOLOL 10 MG TAB PO SCH ×2 (09:00→20:25)
[2018-12-08] MEDS: SOD CHLORIDE 0.45% 1,000 ML IV SCH ×3 (09:32→22:30)
[2018-12-08] MEDS: MULTIVITAMINS/MINERALS TAB PO SCH (09:33)
[2018-12-08] MEDS: SUCRALFATE (100 MG/ML) 10ML CUP PO SCH ×4 (09:33→20:14)
[2018-12-08] MEDS: RIFAXIMIN 550 MG TAB PO SCH ×2 (09:35→20:15)
[2018-12-08] MEDS: ASCORBIC ACID 250 MG TAB PO SCH (09:35)
[2018-12-08] MEDS: ALLOPURINOL 100 MG TAB PO SCH ×2 (09:35→20:15)
[2018-12-08] MEDS: THIAMINE 200 MG INJ IM SCH (09:35)
[2018-12-08] MEDS: FOLIC ACID 1 MG TAB PO SCH (09:35)
[2018-12-08] MEDS: QUETIAPINE 100 MG TAB PO SCH ×2 (09:35→20:15)
[2018-12-08] MEDS: MULTIVITAMINS THERAPEUTIC TAB PO SCH (09:35)
[2018-12-08 19:34] VITALS: BP 98/61; PULSE 77; RESP 17
[2018-12-09] MEDS: LACTULOSE 30ML CUP PO SCH ×6 (01:23→20:48)
[2018-12-09 02:11] VITALS: BP 107/64; PULSE 82; RESP 19
[2018-12-09] MEDS: PANTOPRAZOLE (EC) 40 MG TAB PO SCH ×2 (05:10→16:41)
[2018-12-09] MEDS: SOD CHLORIDE 0.45% 1,000 ML IV SCH (07:50)
[2018-12-09] MEDS: LORAZEPAM 2 MG INJ IV PRN (07:50)
[2018-12-09 08:00] VITALS: BP 108/56; PULSE 85; RESP 18
[2018-12-09] MEDS: PROPRANOLOL 10 MG TAB PO SCH ×2 (09:00→20:48)
[2018-12-09] MEDS: SUCRALFATE (100 MG/ML) 10ML CUP PO SCH ×4 (09:54→20:48)
[2018-12-09] MEDS: QUETIAPINE 100 MG TAB PO SCH ×2 (09:55→20:48)
[2018-12-09] MEDS: ALLOPURINOL 100 MG TAB PO SCH ×2 (09:55→20:48)
[2018-12-09] MEDS: MULTIVITAMINS THERAPEUTIC TAB PO SCH (09:55)
[2018-12-09] MEDS: FOLIC ACID 1 MG TAB PO SCH (09:55)
[2018-12-09] MEDS: ASCORBIC ACID 250 MG TAB PO SCH (09:55)
[2018-12-09] MEDS: MULTIVITAMINS/MINERALS TAB PO SCH (09:55)
[2018-12-09] MEDS: RIFAXIMIN 550 MG TAB PO SCH ×2 (09:55→20:48)
[2018-12-09] MEDS: THIAMINE 200 MG INJ IM SCH (09:56)
[2018-12-09 14:00] VITALS: BP 113/64; PULSE 77; RESP 18
[2018-12-09 20:00] VITALS: BP 126/70; PULSE 83; RESP 20
[2018-12-10] MEDS: SOD CHLORIDE 0.45% 1,000 ML IV SCH ×2 (00:19→12:45)
[2018-12-10] MEDS: LACTULOSE 30ML CUP PO SCH ×6 (01:00→20:12)
[2018-12-10 02:00] VITALS: BP 117/84; PULSE 72; RESP 20
[2018-12-10] MEDS: PANTOPRAZOLE (EC) 40 MG TAB PO SCH ×2 (05:00→17:30)
[2018-12-10 08:00] VITALS: BP 122/71; PULSE 78; RESP 18
[2018-12-10] MEDS: LORAZEPAM 2 MG INJ IV PRN (08:01)
[2018-12-10] MEDS: ASCORBIC ACID 250 MG TAB PO SCH (08:54)
[2018-12-10] MEDS: QUETIAPINE 100 MG TAB PO SCH ×2 (08:54→20:12)
[2018-12-10] MEDS: FOLIC ACID 1 MG TAB PO SCH (08:54)
[2018-12-10] MEDS: RIFAXIMIN 550 MG TAB PO SCH ×2 (08:54→20:12)
[2018-12-10] MEDS: MULTIVITAMINS/MINERALS TAB PO SCH (08:54)
[2018-12-10] MEDS: SUCRALFATE (100 MG/ML) 10ML CUP PO SCH ×4 (08:54→20:12)
[2018-12-10] MEDS: MULTIVITAMINS THERAPEUTIC TAB PO SCH (08:55)
[2018-12-10] MEDS: PROPRANOLOL 10 MG TAB PO SCH ×2 (08:55→20:27)
[2018-12-10] MEDS: ALLOPURINOL 100 MG TAB PO SCH ×2 (08:55→20:12)
[2018-12-10] MEDS: THIAMINE 200 MG INJ IM SCH (08:55)
[2018-12-10 14:08] VITALS: BP 115/72; PULSE 72; RESP 18
[2018-12-10 19:16] VITALS: BP 108/70; PULSE 83; RESP 18
[2018-12-11] MEDS: LACTULOSE 30ML CUP PO SCH ×3 (02:27→08:48)
[2018-12-11] MEDS: PANTOPRAZOLE (EC) 40 MG TAB PO SCH ×2 (05:25→16:44)
[2018-12-11 08:06] VITALS: BP 94/47; PULSE 80; RESP 19
[2018-12-11] MEDS: SUCRALFATE (100 MG/ML) 10ML CUP PO SCH ×4 (08:48→21:01)
[2018-12-11] MEDS: MULTIVITAMINS THERAPEUTIC TAB PO SCH (08:48)
[2018-12-11] MEDS: PROPRANOLOL 10 MG TAB PO SCH ×2 (08:49→21:07)
[2018-12-11] MEDS: RIFAXIMIN 550 MG TAB PO SCH ×2 (08:50→21:01)
[2018-12-11] MEDS: MULTIVITAMINS/MINERALS TAB PO SCH (08:50)
[2018-12-11] MEDS: ALLOPURINOL 100 MG TAB PO SCH ×2 (08:50→21:01)
[2018-12-11] MEDS: FOLIC ACID 1 MG TAB PO SCH (08:50)
[2018-12-11] MEDS: ASCORBIC ACID 250 MG TAB PO SCH (08:50)
[2018-12-11] MEDS: QUETIAPINE 100 MG TAB PO SCH ×2 (08:50→21:01)
[2018-12-11] MEDS: THIAMINE 200 MG INJ IM SCH (08:50)
[2018-12-11] MEDS: LACTULOSE ENEMA 1,000 ML BTL PR SCH ×2 (12:33→21:08)
[2018-12-11 14:06] VITALS: BP 109/56; PULSE 82; RESP 18
[2018-12-12 02:53] VITALS: BP 114/66; PULSE 73; RESP 17
[2018-12-12] MEDS: LACTULOSE ENEMA 1,000 ML BTL PR SCH ×3 (06:21→23:50)
[2018-12-12] MEDS: PANTOPRAZOLE (EC) 40 MG TAB PO SCH ×2 (06:21→17:47)
[2018-12-12 08:00] VITALS: BP 147/82; PULSE 70; RESP 16
[2018-12-12] MEDS: SUCRALFATE (100 MG/ML) 10ML CUP PO SCH ×4 (08:48→21:00)
[2018-12-12] MEDS: MULTIVITAMINS THERAPEUTIC TAB PO SCH (08:49)
[2018-12-12] MEDS: MULTIVITAMINS/MINERALS TAB PO SCH (08:49)
[2018-12-12] MEDS: ALLOPURINOL 100 MG TAB PO SCH ×2 (08:49→21:33)
[2018-12-12] MEDS: FOLIC ACID 1 MG TAB PO SCH (08:49)
[2018-12-12] MEDS: THIAMINE 200 MG INJ IM SCH (08:49)
[2018-12-12] MEDS: QUETIAPINE 100 MG TAB PO SCH ×2 (08:49→21:33)
[2018-12-12] MEDS: RIFAXIMIN 550 MG TAB PO SCH ×2 (08:49→21:33)
[2018-12-12] MEDS: PROPRANOLOL 10 MG TAB PO SCH ×2 (08:50→21:00)
[2018-12-12 14:00] VITALS: BP 100/71; PULSE 64; RESP 18
[2018-12-12 19:52] VITALS: BP 104/60; PULSE 66; RESP 18
[2018-12-13 01:49] VITALS: BP 112/63; PULSE 68; RESP 17
[2018-12-13] MEDS: PANTOPRAZOLE (EC) 40 MG TAB PO SCH ×2 (06:04→16:50)
[2018-12-13] MEDS: LACTULOSE ENEMA 1,000 ML BTL PR SCH ×4 (07:08→23:53)
[2018-12-13 07:38] VITALS: BP 172/65; PULSE 68; RESP 19
[2018-12-13] MEDS: RIFAXIMIN 550 MG TAB PO SCH ×2 (09:00→21:00)
[2018-12-13] MEDS: SUCRALFATE (100 MG/ML) 10ML CUP PO SCH ×4 (09:00→21:00)
[2018-12-13] MEDS: QUETIAPINE 100 MG TAB PO SCH ×2 (09:00→21:00)
[2018-12-13] MEDS: FOLIC ACID 1 MG TAB PO SCH (09:00)
[2018-12-13] MEDS ORDERED: METHADONE 10 MG TAB PO SCH (09:00)
[2018-12-13] MEDS: MULTIVITAMINS THERAPEUTIC TAB PO SCH (09:00)
[2018-12-13] MEDS: ALLOPURINOL 100 MG TAB PO SCH ×2 (09:00→21:00)
[2018-12-13] MEDS: MULTIVITAMINS/MINERALS TAB PO SCH (09:00)
[2018-12-13] MEDS: PROPRANOLOL 10 MG TAB PO SCH ×2 (09:00→21:00)
[2018-12-13] MEDS: THIAMINE 200 MG INJ IM SCH (09:58)
[2018-12-13 12:30] VITALS: BP 124/69; PULSE 71; RESP 20
[2018-12-13] MEDS: LORAZEPAM 2 MG INJ IV PRN (12:37)
[2018-12-13 20:00] VITALS: BP 118/76; PULSE 76; RESP 16
[2018-12-14 02:00] VITALS: BP 110/61; PULSE 75; RESP 18
[2018-12-14] MEDS: PANTOPRAZOLE (EC) 40 MG TAB PO SCH ×3 (06:00→18:00)
[2018-12-14] MEDS: LACTULOSE ENEMA 1,000 ML BTL PR SCH ×4 (06:09→23:35)
[2018-12-14 07:52] VITALS: BP 114/71; PULSE 82; RESP 19
[2018-12-14] MEDS: SUCRALFATE (100 MG/ML) 10ML CUP PO SCH ×4 (10:26→21:13)
[2018-12-14] MEDS: RIFAXIMIN 550 MG TAB PO SCH ×2 (10:28→21:13)
[2018-12-14] MEDS: PROPRANOLOL 10 MG TAB PO SCH ×2 (10:29→21:14)
[2018-12-14] MEDS: ALLOPURINOL 100 MG TAB PO SCH ×2 (10:29→21:13)
[2018-12-14] MEDS: QUETIAPINE 100 MG TAB PO SCH ×2 (10:29→21:13)
[2018-12-14] MEDS: FOLIC ACID 1 MG TAB PO SCH (10:42)
[2018-12-14] MEDS: MULTIVITAMINS/MINERALS TAB PO SCH (10:43)
[2018-12-14] MEDS: THIAMINE 200 MG INJ IM SCH (10:44)
[2018-12-14 15:03] VITALS: BP 100/66; PULSE 88; RESP 20
[2018-12-14 19:17] VITALS: BP 109/75; PULSE 89; RESP 20
[2018-12-15 01:48] VITALS: BP 108/56; PULSE 82; RESP 20
[2018-12-15] MEDS: LACTULOSE ENEMA 1,000 ML BTL PR SCH ×3 (05:27→18:38)
[2018-12-15] MEDS: PANTOPRAZOLE (EC) 40 MG TAB PO SCH ×2 (05:29→17:14)
[2018-12-15 08:05] VITALS: BP 93/56; PULSE 72
[2018-12-15] MEDS: THIAMINE 200 MG INJ IM SCH (09:00)
[2018-12-15] MEDS: RIFAXIMIN 550 MG TAB PO SCH ×2 (09:00→21:00)
[2018-12-15] MEDS: MULTIVITAMINS/MINERALS TAB PO SCH (09:00)
[2018-12-15] MEDS: PROPRANOLOL 10 MG TAB PO SCH ×3 (09:00→21:01)
[2018-12-15] MEDS: FOLIC ACID 1 MG TAB PO SCH (09:00)
[2018-12-15] MEDS: ALLOPURINOL 100 MG TAB PO SCH ×3 (09:00→21:01)
[2018-12-15] MEDS: QUETIAPINE 100 MG TAB PO SCH ×2 (09:00→21:00)
[2018-12-15 13:59] VITALS: BP 103/57; PULSE 74; RESP 19
[2018-12-15 20:00] VITALS: BP 117/57; PULSE 69; RESP 18
[2018-12-16] MEDS: LACTULOSE ENEMA 1,000 ML BTL PR SCH ×2 (01:17→05:58)
[2018-12-16 02:00] VITALS: BP 99/54; PULSE 75; RESP 18
[2018-12-16] MEDS: PANTOPRAZOLE (EC) 40 MG TAB PO SCH (05:59)
[2018-12-16 08:37] VITALS: BP 121/67; PULSE 77; RESP 18
[2018-12-16] MEDS: QUETIAPINE 100 MG TAB PO SCH (09:00)
[2018-12-16] MEDS: PROPRANOLOL 10 MG TAB PO SCH (09:00)
[2018-12-16] MEDS: ALLOPURINOL 100 MG TAB PO SCH (09:00)
[2018-12-16] MEDS: RIFAXIMIN 550 MG TAB PO SCH (09:00)
[2018-12-16] MEDS: MULTIVITAMINS/MINERALS TAB PO SCH (09:00)
[2018-12-16] MEDS: FOLIC ACID 1 MG TAB PO SCH (09:00)
[2018-12-16] MEDS: THIAMINE 200 MG INJ IM SCH (09:47)
[2018-12-16] MEDS ORDERED: morphine 2 MG INJ IV PRN (14:00)
[2018-12-16] MEDS ORDERED: ALBUTEROL 0.083% (NEB) 2.5 MG/3 ML AMP HHN PRN (14:00)
[2018-12-16] MEDS ORDERED: ATROPINE SULFATE 1% 5ML SL PRN (14:00)
[2018-12-16] MEDS ORDERED: IPRATROPIUM (NEB) 0.5 MG/2.5 ML AMP HHN PRN (14:00)
[2018-12-16] MEDS ORDERED: LORAZEPAM 2 MG INJ IV PRN (14:00)
[2018-12-16] MEDS: LORAZEPAM 2 MG INJ IV SCH ×2 (15:29→17:23)
[2018-12-16] MEDS: IPRATROPIUM (NEB) 0.5 MG/2.5 ML AMP HHN SCH ×2 (17:32→21:58)
[2018-12-16 19:54] VITALS: BP 113/69; PULSE 82; RESP 18
[2018-12-16] MEDS ORDERED: MORPHINE SL SCH (21:00)
[2018-12-17] MEDS: LORAZEPAM 2 MG INJ IV SCH ×2 (00:10→05:18)
[2018-12-17] MEDS: IPRATROPIUM (NEB) 0.5 MG/2.5 ML AMP HHN SCH ×3 (01:28→08:19)
== END 2018-12-17 08:29 | disposition expired | DRG 432 ==
LOC: E/R 22:19 → 2NE 10-25 01:00 → OBSVTOIN 10-25 05:09 → 6WM 10-25 21:58 → MS3 11-01 14:50 → TEL 11-02 14:10 → 6WM 11-03 15:39 → PP2 11-05 06:35 → MS3 11-17 17:35
PROVIDERS: ADMIT Family Medicine; ATTEND Family Medicine
PROC: 0DB78ZX Excision of Stomach, Pylorus, Via Natural or Artificial Opening Endoscopic, Diagnostic (ICD-10-PCS; 2018-10-27)
PROC: 0DB68ZX Excision of Stomach, Via Natural or Artificial Opening Endoscopic, Diagnostic (ICD-10-PCS; principal; 2018-10-27 15:00)
DX: K70.30 Alcoholic cirrhosis of liver without ascites (principal); N17.0 Acute kidney failure with tubular necrosis; K76.7 Hepatorenal syndrome; K92.1 Melena; K76.6 Portal hypertension; I85.10 Secondary esophageal varices without bleeding; D68.4 Acquired coagulation factor deficiency; K70.40 Alcoholic hepatic failure without coma; D53.9 Nutritional anemia, unspecified; D69.59 Other secondary thrombocytopenia; D17.5 Benign lipomatous neoplasm of intra-abdominal organs; E80.6 Other disorders of bilirubin metabolism; E66.01 Morbid (severe) obesity due to excess calories; E79.0 Hyperuricemia without signs of inflammatory arthritis and tophaceous disease; F29 Unspecified psychosis not due to a substance or known physiological condition; F17.200 Nicotine dependence, unspecified, uncomplicated; F10.229 Alcohol dependence with intoxication, unspecified; Y90.8 Blood alcohol level of 240 mg/100 ml or more; G62.9 Polyneuropathy, unspecified; I10 Essential (primary) hypertension; J44.9 Chronic obstructive pulmonary disease, unspecified; K70.10 Alcoholic hepatitis without ascites; K31.89 Other diseases of stomach and duodenum; R41.3 Other amnesia; R00.0 Tachycardia, unspecified; Z66 Do not resuscitate; Z51.5 Encounter for palliative care; Z68.38 Body mass index [BMI] 38.0-38.9, adult; Z91.81 History of falling
CPT/HCPCS: 36415; 36600; 70450; 71045; 74176; 74181; 76705; 76775; 80048; 80053; 80307; 81003; 82140; 82270; 82306; 82550; 82570; 82607; 82746; 82803; 82962; 83036; 83735; 84100; 84300; 84443; 84484; 84560; 85025; 85610; 85730; 86706; 86803; 86850; 86900; 86901; 87340; 88305; 88312; 89190; 92526; 92610; 93005; 94640; 97110; 97116; 97162; 97164; 97530; C9113; G0378; J0360; J0696; J1170; J1200; J1630; J2060; J2354; J2405; J3360; J3411; J3475; J3480; J7030; J7040; J7050; P9047